=== PATIENT | male | born 1990 | race Caucasian/White ===

== ENCOUNTER → 2020-09-14 | Outpatient (CLI) | payer BC ==
[~2020-09-14] MED LIST: CLINDAMYCIN HC300 MG PO; EPI EZ PEN1 MG/ML IM; MEDROL DOSEPAK4 MG PO
== END | disposition home or self-care (01) ==
LOC: COVID19 10:11
PROVIDERS: ATTEND Family Medicine
DX: U07.1 COVID-19 (principal)